=== PATIENT | female | born 1990 | race Caucasian/White ===

== ENCOUNTER → 2018-10-17 | Outpatient (CLI) | payer BC ==
[~2018-10-17] MED LIST: ACET1TAB43 PO; BENZ56AE2 TP; DOCU100C37 PO; FERR325T18 PO; IBUP-1773 PO; PREN-53 PO
--- NOTE | 2018-10-17 15:12 | Diagnostic Imaging Report ---
INDICATION: survey. TECHNIQUE: Multiple real-time grayscale images were obtained over the gravid uterus. COMPARISON: None FINDINGS: There is a single live fetus in a cephalic presentation. heart rate was recorded at 160 beats per minute. Placenta is anterior. Amniotic fluid volume is normal. survey demonstrates kidneys, bladder and stomach to be unremarkable. The brain is unremarkable. There is a four-chamber heart. There is a three-vessel cord with normal insertion. The spine is unremarkable. Cervical length is 4.2 cm. Biometrical measurements are as follows: Biparietal 4.41 cm, age 19 weeks 3 days. Head circumference 17.88 cm, age 20 weeks 3 days. Abdominal circumference 14.69 cm, age 20 weeks 0 days. Femur length 3.25 cm, age 20 weeks 1 days. Sonographic estimate age: 20 weeks 0 days. Sonographic estimated date of delivery: 03/06/19. Estimated Weight: 329 gm (+/- 48 gm). LMP percentile: 26%. heart rate: 160 beats per minute. number: 1 of 1. IMPRESSION: Single live IUP approximately 20 weeks gestational age. Estimated date of confinement sonographically is 03/06/2019. No significant abnormality is detected. Dictated by: Dictated on workstation # [id number]
== END ==
LOC: RAD 12:55
PROVIDERS: ATTEND Obstetrics & Gynecology
DX: Z36.89 Encounter for other specified antenatal screening (principal); Z3A.20 20 weeks gestation of pregnancy
CPT/HCPCS: 76805

== ENCOUNTER 2019-02-12 19:42 | Outpatient (CLI) | payer BC ==
[~2019-02-12] VITALS: Ht 165.1 cm; Wt 80.9 kg
--- NOTE | 2019-02-12 19:45 | NUR ---
JOHANN BRUCE presented to unit via ambulatory from ED, accompanied by family, with c/o CONTRACTIONS. JOHANN BRUCE weighed, gowned, voided, and to bed. EFHM and TOCO applied, VS taken. JOHANN BRUCE oriented to bed controls, call light, TV, heat, and A/C controls.
[2019-02-12 20:00] VITALS: BP 130/82
[2019-02-12] MEDS ORDERED: D5 LR IV SOLUTION 1,000 ML IV ONE (20:11)
[2019-02-12] MEDS ORDERED: D5 LR IV SOLUTION 1,000 ML IV SCH (20:15)
[2019-02-12 20:23] LABS: BILIRUBIN,URINE NEGATIVE (NEGATIVE); CLARITY,URINE CLEAR; COLOR,URINE YELLOW; GLUCOSE, URINE (UA) NEGATIVE (NEGATIVE); KETONES,URINE NEGATIVE (NEGATIVE); LEUKOCYTE ESTERASE ,URINE NEGATIVE (NEGATIVE); NITRITE,URINE NEGATIVE (NEGATIVE); PH,URINE 7 (5-9); PROTEIN,URINE NEGATIVE (NEGATIVE); UROBILINOGEN,URINE NORMAL (NORMAL)
[2019-02-12 20:27] LABS: BACTERIA,URINE TRACE /HPF
[2019-02-12 21:20] VITALS: BP 124/70
--- NOTE | 2019-02-12 22:05 | NUR ---
Discharge paperwork discussed with patient. labor precautions given. pt dc'd home. will follow up with in office on
== END 2019-02-12 22:05 | disposition home or self-care (01) ==
LOC: WSo 19:42 → LDRP 19:42 → WSo 22:05
PROVIDERS: ATTEND Obstetrics & Gynecology
DX: O62.9 Abnormality of forces of labor, unspecified (principal); Z3A.37 37 weeks gestation of pregnancy
CPT/HCPCS: 81000; 96360; 96361; 99213

== ENCOUNTER 2019-02-21 21:42 | Inpatient (IN) | payer BC ==
[~2019-02-21] VITALS: Ht 165.1 cm; Wt 77.8 kg
--- NOTE | 2019-02-21 22:00 | NUR ---
JOHANN BRUCE presented to unit via from ED, accompanied by , with c/o CONTRACTIONS. JOHANN BRUCE weighed, gowned, voided, and to bed. EFHM and TOCO applied, VS taken. JOHANN BRUCE oriented to bed controls, call light, TV, heat, and A/C controls. Pt. denies bleeding or leaking of fluids. Confirms movement.
[2019-02-21 22:12] VITALS: BP 116/66
[2019-02-21 22:31] LABS: BILIRUBIN,URINE NEGATIVE (NEGATIVE); CLARITY,URINE CLEAR; COLOR,URINE YELLOW; GLUCOSE, URINE (UA) NEGATIVE (NEGATIVE); KETONES,URINE NEGATIVE (NEGATIVE); LEUKOCYTE ESTERASE ,URINE NEGATIVE (NEGATIVE); NITRITE,URINE NEGATIVE (NEGATIVE); PH,URINE 6 (5-9); PROTEIN,URINE NEGATIVE (NEGATIVE); UROBILINOGEN,URINE NORMAL (NORMAL)
[2019-02-21 23:09] LABS: BACTERIA,URINE NEGATIVE /HPF; WBC,URINE 0-2 /HPF
[2019-02-22] VITALS (33 sets, daily range): BP systolic 99–157; BP diastolic 55–83
--- NOTE | 2019-02-22 05:43 | NUR ---
At pt bedside. Pt has been sleeping soundly throughout the night. States that she is doing well, and just a couple of contractions had woke her up through the night. Pt. has no questions or concerns at this time.
--- NOTE | 2019-02-22 07:08 | NUR ---
Report given to Reshma Barrientos RN. Care turned over.
[2019-02-22] MEDS ORDERED: D5 LR IV SOLUTION 1,000 ML IV SCH (08:24)
--- NOTE | 2019-02-22 09:00 | NUR ---
admission paperwork completed. POC reviewed with pt and .
--- NOTE | 2019-02-22 09:14 | NUR ---
#20g IV to Lt.FA x1 attempt by this RN. site patent, secured with opsite. admission labs collected from site prior to IVF''s infusing.
[2019-02-22 09:38] LABS: BASOPHILS % (AUTO) 0 % (0-10); EOSINOPHILS # (AUTO) 0.1 10^3/uL (0.0-0.3); EOSINOPHILS % (AUTO) 1 % (0-10); HEMATOCRIT 37 % (35-52); HEMOGLOBIN 12.8 G/DL (11.5-16.0); LYMPHOCYTES # (AUTO) 1.4 X 10^3 (1.0-4.0); LYMPHOCYTES % (AUTO) 18 % (12-44); MEAN CORPUSCULAR HEMOGLOBIN 33 PG (25-34); MEAN CORPUSCULAR HGB CONC 35 G/DL (32-36); MEAN CORPUSCULAR VOLUME 94 FL (80-99); MEAN PLATELET VOLUME 11.7 FL (7.4-10.4); MONOCYTES # (AUTO) 0.7 X 10^3 (0.0-1.0); MONOCYTES % (AUTO) 8 % (0-12); NEUTROPHILS # (AUTO) 5.7 X 10^3 (1.8-7.8); NEUTROPHILS % (AUTO) 72 % (42-75); PLATELET COUNT 134 10^3/uL (130-400); RED CELL DISTRIBUTION WIDTH 13.6 % (10.0-14.5); WHITE BLOOD COUNT 7.8 10^3/uL (4.3-11.0)
--- NOTE | 2019-02-22 09:42 | History & Physical-OB ---
OB - Chief Complaint & HPI Date/Time Date of Admission: Date of Admission:02/21/2019 Date seen by a Provider: Feb 22, 2019 Time Seen by a Provider: 08:00 Chief Complaint/History OB-Reason for Admission/Chief: Onset of Labor Hx : 4 Hx Para: 1 Expected Date of Delivery: Mar 03, 2019 Gestational Age in Weeks: 38 Gestational Age in Days: 4 Admission Nurse Assessment Rev: Yes History of Labs GBS neg Allergies and Home Medications Allergies Coded Allergies: No Known Drug Allergies (Unverified , 01/01/16) Home Medications Wry376/Iron Fumarate/FA/Dss 1 Each Tablet, 1 EACH PO DAILY, (Reported) Patient Home Medication List Home Medication List Reviewed: Yes OB - History Hx of Present Care: Yes Ultrasounds: Normal mid trimester US Obstetrical Complications: None Medical Complications: None Obstetrical History Hx : 4 Hx Para: 1 Hx Total # of Abortions (Spona: 2 Delivery History Hx Blood Disorders: No Adverse Rxn to Tranfusion: No Patient Past Medical History none Social History/Family History Recent Infectious Disease Expo: No Immunizations Tetanus Booster (TDap): Less than 5yrs Date of Influenza Vaccine: Oct 14, 2018 OB - Admission Exam Physical Exam Vitals: Vital Signs 02/22/19 02/22/19 00:25 02:26 Temp 97.9 Pulse 71 Resp 18 B/P (MAP) 120/63 (82) O2 Delivery Room Air HEENT: NCAT Heart: Rhythm Normal Lungs: Clear Abdomen: Gravid Extremities: Normal Cervical Dilatation: 4cm Effacement: 75% Station: -1 Membranes: Intact Heart Rate: 130's Accelerations: Accelerations Present Decelerations: No Decelerations Short Term Variability: Present Ceramic Worker Variability: Average (6-25) Contractions on Admission: 6-10 Minutes Apart Intensity: Moderate Labs Laboratory Tests Test 02/21/19 22:05 02/22/19 09:14 Range/Units Urine Color YELLOW Urine Clarity CLEAR Urine pH 6 5-9 Urine Specific [place] 1.015 L 1.016-1.022 Urine Protein NEGATIVE NEGATIVE Urine Glucose (UA) NEGATIVE NEGATIVE Urine Ketones NEGATIVE NEGATIVE Urine Nitrite NEGATIVE NEGATIVE Urine Bilirubin NEGATIVE NEGATIVE Urine Urobilinogen NORMAL NORMAL MG/DL Urine Leukocyte Esterase NEGATIVE NEGATIVE Urine RBC (Auto) NEGATIVE NEGATIVE Urine RBC NONE /HPF Urine WBC 0-2 /HPF Urine Squamous Epithelial Cells 2-5 /HPF Urine Crystals NONE /LPF Urine Bacteria NEGATIVE /HPF Urine Casts NONE /LPF Urine Mucus NEGATIVE /LPF Urine Culture Indicated NO OB - Assessment/Plan/Diagnosis Assessment Assessment: active labor Admission Dx 28 yo @ 38 weeks Active labor GBS neg Admission Status: Inpatient Order (span 2 midnights) Reason for Inpatient Admission: Active labor at term Plan Plan: Expectant Management (AROM) CLARK CASTRO DO Feb 22, 2019 09:42
[2019-02-22] MEDS ORDERED: OXYTOCIN/NORMAL SALINE 500 ML IV ONE (10:05)
[2019-02-22] MEDS: OXYTOCIN/NORMAL SALINE 500 ML IV SCH ×2 (10:10→14:59)
[2019-02-22] MEDS ORDERED: SUFENTA 0.6MCG/ML BUPIVA 0.125 100 ML ONE (11:12)
[2019-02-22] MEDS ORDERED: fentaNYL INJECTION 100 MCG/2 ML AMP ONE (11:29)
[2019-02-22] MEDS ORDERED: LACTATED RINGERS 1,000 ML IV ONE (12:16)
[2019-02-22] MEDS ORDERED: diphenhydrAMINE 50 MG/ML INJ (BENADRYL) IV PRN (12:30)
[2019-02-22] MEDS ORDERED: ONDANSETRON 4 MG/2 ML (SDV) Z0FRAN IV PRN (12:30)
[2019-02-22] MEDS ORDERED: NALOXONE 0.4 MG/ML 1 ML (NARCAN) VIAL IV PRN ×2 (12:30)
[2019-02-22] MEDS ORDERED: EPIDURAL (SUFENTA 0.6MCG/ML BUPIVA 0.125%) 100 ML BAG EPI PRN (12:30)
[2019-02-22] MEDS ORDERED: METOCLOPRAMIDE INJ 10 MG/2 ML (REGLAN) IV PRN (12:30)
[2019-02-22] MEDS ORDERED: CATHETER FLUSH 10 ML SYR IV SCH ×2 (14:00→22:00)
[2019-02-22] MEDS ORDERED: LIDOCAINE/EPI 2% 1:200,00 (XYLOCAINE) 10 ML VIAL ONE (14:09)
[2019-02-22] MEDS ORDERED: OXYTOCIN/NORMAL SALINE 500 ML IV SCH (16:54)
[2019-02-22] MEDS ORDERED: TETANUS,DIPTH,PERTUSS P/F (BOOSTRIX) 0.5 ML VIAL IM ONE (17:00)
[2019-02-22] MEDS ORDERED: BENZOCAINE/MENTHOL (DERMOPLAST) 56 ML CAN TP PRN (17:00)
[2019-02-22] MEDS ORDERED: WITCH HAZEL(TUCKS) 40 EA JAR TOP PRN (17:00)
[2019-02-22] MEDS ORDERED: MEASLES,MUMPS,RUBELLA 1 EA INJ SQ ONE (17:00)
[2019-02-22] MEDS ORDERED: DIBUCAINE (NUPERCAINAL) 1% OINT 30 GM TOP PRN (17:00)
--- NOTE | 2019-02-22 17:00 | OB Labor & Delivery Record ---
L&D History Date of Service Date of Service: Feb 22, 2019 History Expected Date of Delivery: Mar 03, 2019 Gestational Age in Weeks: 38 Hx : 4 Hx Para: 1 Complications Events: Routine care Operative Indications (Cesarea: N/A-Vaginal Delivery Intrapartal Events: None L&D Stage1 Stage One Onset of Labor - Date: Feb 22, 2019 Monitors and Tracing Monitor Mode: External Heart Rate: 130 Monitor Decelerations: None Station: -1 Prison Variability: Moderate (11-25) Short Term Variability: Present Presentation: Vertex Vital Signs VS - Last 72 Hours, by Label 02/21/19 02/22/19 02/22/19 02/22/19 22:12 00:25 02:26 07:50 Temp 97.5 97.9 97.6 Pulse 84 76 71 75 Resp 18 18 18 18 B/P (MAP) 116/66 (83) 108/61 (77) 120/63 (82) 116/72 (87) O2 Delivery Room Air Room Air Room Air Room Air 02/22/19 02/22/19 02/22/19 02/22/19 10:15 10:30 10:45 11:00 Pulse 85 78 78 78 Resp 18 18 18 18 B/P (MAP) 117/68 (84) 119/67 (84) 113/63 (80) 126/70 (88) O2 Delivery Room Air Room Air Room Air Room Air 02/22/19 02/22/19 02/22/19 02/22/19 11:15 11:30 11:40 11:45 Pulse 88 77 85 79 Resp 18 18 18 18 B/P (MAP) 137/83 (101) 137/83 (101) 132/75 (94) 157/70 (99) Pulse Ox 98 O2 Delivery Room Air Room Air Room Air Room Air 02/22/19 02/22/19 02/22/19 02/22/19 11:50 11:55 12:00 12:05 Pulse 77 85 89 78 Resp 18 18 18 18 B/P (MAP) 120/70 (87) 124/74 (91) 157/70 (99) 115/71 (86) Pulse Ox 98 100 100 100 O2 Delivery Room Air Room Air Room Air Room Air 02/22/19 02/22/19 02/22/19 02/22/19 12:10 12:15 12:20 12:25 Pulse 82 94 93 90 Resp 18 18 18 18 B/P (MAP) 117/70 (86) 133/57 (82) 111/60 (77) 107/55 (72) Pulse Ox 100 100 100 100 O2 Delivery Room Air Room Air Room Air Room Air 02/22/19 02/22/19 02/22/19 02/22/19 12:30 12:43 13:00 13:15 Temp 96.7 Pulse 112 95 80 Resp 18 18 18 B/P (MAP) 114/55 (74) 117/57 (77) 107/59 (75) Pulse Ox 100 100 100 O2 Delivery Room Air Room Air Room Air 02/22/19 02/22/19 02/22/19 02/22/19 13:30 13:45 14:00 14:25 Pulse 89 84 90 76 Resp 18 18 18 18 B/P (MAP) 99/64 (76) 121/75 (90) 119/71 (87) 107/59 (75) Pulse Ox 99 O2 Delivery Room Air Room Air Room Air Room Air 02/22/19 02/22/19 02/22/19 02/22/19 14:55 15:10 15:25 15:40 Pulse 76 76 79 83 Resp 18 18 18 18 B/P (MAP) 110/57 (74) 107/59 (75) 111/61 (78) 112/65 (81) O2 Delivery Room Air Room Air Room Air Room Air 02/22/19 02/22/19 15:55 16:10 Pulse 82 82 Resp 18 18 B/P (MAP) 104/60 (75) 109/65 (80) O2 Delivery Room Air Room Air Rupture of Membranes Spontaneous Ruture of Membrane: No Amniotic Membrane Rupture Time: 0821 Amniotic Membrane Fluid Desc.: Clear Vaginal Bleeding Description: Normal Show Induction/Anesthesia Epidural Cath Placement - Time: 1145 Progress/Notes Pitocin augmentation to max dose of 4mu /min used L&D Stage2 Stage Two Stage II Date: Feb 22, 2019 Monitors and Tracing Monitor Mode: External Heart Rate: 130 Monitor Decelerations: None Prison Variability: Average (6-10) Short Term Variability: Present Position: Right Occiput Anterior Presentation: Vertex Cord Descript/Complications Cord Vessel Description: 3 Vessels Delivery Type Delivery Method: Spontaneous Vaginal Anterior Shoulder: Left Episiotomy/Perineal Laceration Laceraction(s)/Extensions: Yes Episiotomy Description: Midline Degree (describe repair) midline epis, repaired using 3-0 and 2-0 vicryl suture Condition of Delivery 1 minute Comment: 8 5 minute Comment: 9 Notes Live male infant 7 lbs even Condition of Infant Condition of Infant: Living Exam: No Observed Abnormalities Resuscitation Resuscitation: N/A - Spontaneous Resp L&D Stage3 Stage Three Stage III Date: Feb 22, 2019 Pictocin Pitocin Administration mu/min: 30 Pitocin ml/hr: 4 Pitocin Administration Comment: 30 m/u pitocin increased at delivery of placenta Placenta Delivery Placenta Delivery: Spontaneous Delivery Summary Summary Estimated blood loss (mL): 300 Attending at delivery: Clark Castro DO Condition of Delivery Examined: Cervix Examined, Uterus Explored Post Hemorrhage: No Condition of Mother stable Condition of Infant (s) stable CLARK CASTRO DO Feb 22, 2019 17:00
[2019-02-22] MEDS: IBUPROFEN 600 MG (MOTRIN) TAB PO SCH (18:00)
[2019-02-22] MEDS: ACETAMINOPHEN 500 MG TAB (TYLENOL) PO SCH (18:00)
--- NOTE | 2019-02-22 18:00 | NUR ---
FFu/1. lt rubra noted. no clots expressed. julia-care offered. Dermaplast to perineum. v-pad and panties in place. scheduled Motrin and Tylenol given. see eMar for further. transferred to room 312 via w/c with family @ side.
--- NOTE | 2019-02-22 19:10 | NUR ---
report given to next shift.
[2019-02-23] VITALS: BP 126/59
[2019-02-23] MEDS: ACETAMINOPHEN 500 MG TAB (TYLENOL) PO SCH ×3 (00:05→12:46)
[2019-02-23] MEDS: IBUPROFEN 600 MG (MOTRIN) TAB PO SCH ×3 (00:05→12:45)
[2019-02-23 04:16] VITALS: BP 113/65
[2019-02-23 06:18] LABS: BASOPHILS % (AUTO) 0 % (0-10); EOSINOPHILS # (AUTO) 0.1 10^3/uL (0.0-0.3); EOSINOPHILS % (AUTO) 1 % (0-10); HEMATOCRIT 32 % (35-52); LYMPHOCYTES # (AUTO) 1.9 X 10^3 (1.0-4.0); LYMPHOCYTES % (AUTO) 17 % (12-44); MEAN CORPUSCULAR HEMOGLOBIN 33 PG (25-34); MEAN CORPUSCULAR HGB CONC 35 G/DL (32-36); MEAN CORPUSCULAR VOLUME 95 FL (80-99); MEAN PLATELET VOLUME 12.3 FL (7.4-10.4); MONOCYTES # (AUTO) 1.1 X 10^3 (0.0-1.0); MONOCYTES % (AUTO) 10 % (0-12); NEUTROPHILS # (AUTO) 7.7 X 10^3 (1.8-7.8); NEUTROPHILS % (AUTO) 71 % (42-75); PLATELET COUNT 146 10^3/uL (130-400); RED CELL DISTRIBUTION WIDTH 13.4 % (10.0-14.5); WHITE BLOOD COUNT 10.9 10^3/uL (4.3-11.0)
--- NOTE | 2019-02-23 06:58 | Anesthesia-Regional Post-Op ---
Regional Patient Condition Mental Status: Alert, Oriented x3 Circulation: Same as Pre-Op Headache: Absent Sensation: Full Recovery Motor Block: Absent Post Op Complications Complications None Follow Up Care/Instructions Patient Instructions None needed. Anesthesia/Patient Condition Patient is doing well, no complaints, stable vital signs, no apparent adverse anesthesia problems. No complications reported per nursing. FABRICE EAST CRNA Feb 23, 2019 06:58
[2019-02-23] MEDS ORDERED: FERROUS SULF 325 MG (IRON) TAB PO SCH (08:00)
--- NOTE | 2019-02-23 08:42 | NUR ---
infant currently breast feeding. no c/o's voiced. scheduled FeSo4 given. see eMar for further.
--- NOTE | 2019-02-23 09:45 | NUR ---
,[facility] here. new orders received.
[2019-02-23 09:52] VITALS: BP 122/64
--- NOTE | 2019-02-23 09:52 | NUR ---
initial shift assessment completed, see interventions for further. POC reviewed, states understanding.
--- NOTE | 2019-02-23 09:58 | Discharge Inst-Women's Service ---
Discharge Inst-Women's Serv Depart Medication/Instructions New, Converted or Re-Newed RX: RX on Chart Final Diagnosis PPD 1 NVD Consults/Follow Up Additional Follow Up: Yes Activity Activity: Activity as Tolerated Driving Instructions: No Driving for 1 Week NO SMOKING: NO SMOKING Nothing Inside Vagina: No Douching, No [place], No Tampons Diet Discharge Diet: No Restrictions Symptoms to Report to : Bleeding Excessive, Pain Increased, Fever Over 101 Degrees F, Vaginal Bleeding Increase For Any Problems or Questions: Contact Your Physician CLARK CASTRO DO Feb 23, 2019 09:58
[2019-02-23] MEDS ORDERED: IBUP-844 PO (09:59)
[2019-02-23] MEDS ORDERED: Benzocaine/Menthol TP (09:59)
--- NOTE | 2019-02-23 10:02 | Postpartum Progress Note ---
Note Note Day # 1 Subjective: Patient is without complaints. Ambulating, voiding. Tolerating a regular diet without nausea or vomiting. Normal lochia. Pain is well controlled with oral pain medications. Objective: Physical Exam: General - Alert and oriented, no apparent distress Abdomen - Soft, appropriately tender to palpation, non-distended, fundus firm at umbilicus Extremities - no edema, negative Eva's bilaterally Assessment: PPD 1 NVD Plan: Routine care. Encourage breast feeding. Encourage ambulation. Ferrous sulfate supplementation. Plan for discharge today Vitals - Labs Vital Signs - I&O Vital Signs Date Time Temp Pulse Resp B/P (MAP) Pulse Ox O2 Delivery O2 Flow Rate FiO2 02/23/19 04:16 98.5 82 18 113/65 (81) Room Air 02/23/19 00:00 99.1 91 18 126/59 (81) 97 Room Air 02/22/19 20:15 99.5 97 18 110/59 (76) 97 Room Air 02/22/19 16:10 82 18 109/65 (80) Room Air 02/22/19 15:55 82 18 104/60 (75) Room Air 02/22/19 15:40 83 18 112/65 (81) Room Air 02/22/19 15:25 79 18 111/61 (78) Room Air 02/22/19 15:10 76 18 107/59 (75) Room Air 02/22/19 14:55 96.3 76 18 110/57 (74) Room Air 02/22/19 14:25 76 18 107/59 (75) Room Air 02/22/19 14:00 90 18 119/71 (87) Room Air 02/22/19 13:45 84 18 121/75 (90) Room Air 02/22/19 13:30 89 18 99/64 (76) 99 Room Air 02/22/19 13:15 80 18 107/59 (75) 100 Room Air 02/22/19 13:00 95 18 117/57 (77) 100 Room Air 02/22/19 12:43 96.7 02/22/19 12:30 112 18 114/55 (74) 100 Room Air 02/22/19 12:25 90 18 107/55 (72) 100 Room Air 02/22/19 12:20 93 18 111/60 (77) 100 Room Air 02/22/19 12:15 94 18 133/57 (82) 100 Room Air 02/22/19 12:10 82 18 117/70 (86) 100 Room Air 02/22/19 12:05 78 18 115/71 (86) 100 Room Air 02/22/19 12:00 89 18 157/70 (99) 100 Room Air 02/22/19 11:55 85 18 124/74 (91) 100 Room Air 02/22/19 11:50 77 18 120/70 (87) 98 Room Air 02/22/19 11:45 79 18 157/70 (99) Room Air 02/22/19 11:40 85 18 132/75 (94) 98 Room Air 02/22/19 11:30 77 18 137/83 (101) Room Air 02/22/19 11:15 88 18 137/83 (101) Room Air 02/22/19 11:00 78 18 126/70 (88) Room Air 02/22/19 10:45 78 18 113/63 (80) Room Air 02/22/19 10:30 78 18 119/67 (84) Room Air 02/22/19 10:15 85 18 117/68 (84) Room Air I & O 02/23/19 07:00 Intake Total 2000 ml Balance 2000 ml Labs Laboratory Tests 02/23/19 05:47: White Blood Count 10.9, Red Blood Count 3.37L, Hemoglobin 11.0L, Hematocrit 32L , Mean Corpuscular Volume 95, Mean Corpuscular Hemoglobin 33, Mean Corpuscular Hemoglobin Concent 35, Red Cell Distribution Width 13.4, Platelet Count 146, Mean Platelet Volume 12.3H, Neutrophils (%) (Auto) 71, Lymphocytes (%) (Auto) 17 , Monocytes (%) (Auto) 10, Eosinophils (%) (Auto) 1, Basophils (%) (Auto) 0, Neutrophils # (Auto) 7.7, Lymphocytes # (Auto) 1.9, Monocytes # (Auto) 1.1H, Eosinophils # (Auto) 0.1, Basophils # (Auto) 0.0 CLARK CASTRO DO Feb 23, 2019 10:02
[2019-02-23 12:45] VITALS: BP 133/83
--- NOTE | 2019-02-23 16:20 | NUR ---
dismissal instructions given, verbalizes understanding. reviewed follow up appointment and Motrin Rx. signature page signed, placed on chart.
--- NOTE | 2019-02-23 16:29 | NUR ---
Isa Velazquez called into [facility]'s pharmacy per pt's request.
--- NOTE | 2019-02-23 16:40 | NUR ---
pt ambulated to private vehicle with this RN, , and daughter @ side. infant secured in rear facing car seat. pt stable with no sx's of distress noted.
== END 2019-02-23 16:40 | disposition home or self-care (01) | DRG 807 ==
LOC: WSo 21:42 → LDRP 21:42 → WSo 02-22 08:45 → LDRP 02-22 18:00
PROVIDERS: ADMIT Obstetrics & Gynecology; ATTEND Obstetrics & Gynecology
PROC: 10E0XZZ Delivery of Products of Conception, External Approach (ICD-10-PCS; principal; 2019-02-22)
PROC: 0W8NXZZ Division of Female Perineum, External Approach (ICD-10-PCS; 2019-02-22)
DX: O80 Encounter for full-term uncomplicated delivery (principal); Z37.0 Single live birth; Z3A.38 38 weeks gestation of pregnancy
CPT/HCPCS: 36415; 81000; 85025; 86850; 86900; 86901; 99212

== ENCOUNTER → 2020-10-18 | Outpatient (CLI) | payer BC ==
[~2020-10-18] MED LIST changes: +Benzocaine/Menthol TP; +IBUP-844 PO
--- NOTE | 2020-10-18 16:35 | Diagnostic Imaging Report ---
PROCEDURE: CT maxillofacial without contrast. TECHNIQUE: Multiple contiguous axial images were obtained through the facial bones without the use of intravenous contrast. Auto Exposure Controls were utilized during the CT exam to meet ALARA standards for radiation dose reduction. INDICATION: Swelling in left jaw. Chronic sinus problems. COMPARISON: None. FINDINGS: There is complete opacification of the right maxillary sinus and opacification of several of the right anterior ethmoid air cells. The paranasal sinuses are otherwise clear. The right maxillary ostium and frontal recesses are completely occluded. The left ostiomeatal complex and frontal recesses are patent. Normal alignment of the temporomandibular joints. No fractures. The mastoids and middle ears are clear. Skull base intact. Visualized orbits and paranasal sinuses are unremarkable. IMPRESSION: Complete opacification of the right maxillary sinus, several anterior right ethmoid air cells and occlusion of the right maxillary ostium and frontal recesses. Dictated by: Dictated on workstation # [id number]
== END ==
LOC: RAD FS 15:35
PROVIDERS: ATTEND Family Medicine
DX: J34.89 Other specified disorders of nose and nasal sinuses (principal); R22.0 Localized swelling, mass and lump, head
CPT/HCPCS: 70486

== ENCOUNTER 2021-04-17 05:38 | Outpatient (CLI) | payer BC ==
[~2021-04-17] VITALS: Ht 165.1 cm; Wt 63.2 kg
== END 2021-04-17 10:49 | disposition home or self-care (01) ==
LOC: PREOP 05:38
PROVIDERS: ATTEND Otolaryngology Otolaryngology/Facial Plastic Surgery
DX: Z01.818 Encounter for other preprocedural examination (principal)

== ENCOUNTER → 2021-04-22 | Outpatient (CLI) | payer BC ==
[~2021-04-22] MED LIST changes: +ACHD5005 PO; +AMOX-355 PO; +PRD20T PO
== END ==
LOC: LAB FS 10:00
PROVIDERS: ATTEND Otolaryngology Otolaryngology/Facial Plastic Surgery
DX: Z01.812 Encounter for preprocedural laboratory examination (principal); J32.9 Chronic sinusitis, unspecified; J34.3 Hypertrophy of nasal turbinates; Z20.822 Contact with and (suspected) exposure to COVID-19
CPT/HCPCS: 87635

== ENCOUNTER 2021-04-24 06:19 | Day surgery (SDC) | payer BC ==
[~2021-04-24] VITALS: Ht 165 cm; Wt 63.2 kg
[2021-04-24] VITALS (8 sets, daily range): BP systolic 102–151; BP diastolic 71–98
[~2021-04-24 06:19] MED LIST changes: -ACHD5005 PO; -AMOX-355 PO; -PRD20T PO
[2021-04-24] MEDS ORDERED: HYDROCORTISONE 100 MG/2 ML (Solu-CORTEF) VIAL IV ONE (06:30)
[2021-04-24] MEDS ORDERED: AMPICILLIN/SULBACTAM INJECTION 1.5 GM in NS (IVPB) 100 ML IV ONE (06:30)
[2021-04-24] MEDS ORDERED: LACTATED RINGERS 1,000 ML IV PRN (06:30)
[2021-04-24] MEDS ORDERED: MIDAZOLAM 2 MG/2 ML (VERSED) VIAL ONE (06:46)
[2021-04-24] MEDS ORDERED: ROCURONIUM 10 MG/ML 5 ML SYRINGE IV ONE (06:46)
[2021-04-24] MEDS ORDERED: proPOfol 200 MG/20 ML (DIPRIVAN) VIAL IV ONE (06:46)
[2021-04-24] MEDS ORDERED: fentaNYL INJ 100 MCG/2 ML AMP ONE (06:46)
[2021-04-24] MEDS ORDERED: LIDOCAINE PF 2% 5 ML (XYLOCAINE) VIAL ONE (06:46)
[2021-04-24] MEDS ORDERED: ONDANSETRON 4 MG/2 ML (SDV) Z0FRAN ONE (06:46)
[2021-04-24] MEDS ORDERED: SEVOFLURANE (ULTANE) 15 ML INHAL SOLN ONE ×3 (06:52→07:50)
[2021-04-24 06:53] LABS: BASOPHILS % (AUTO) 1 % (0-10); EOSINOPHILS # (AUTO) 0.1 10^3/uL (0.0-0.3); EOSINOPHILS % (AUTO) 3 % (0-10); HEMATOCRIT 41 % (35-52); HEMOGLOBIN 14.1 g/dL (11.5-16.0); LYMPHOCYTES # (AUTO) 2.4 10^3/uL (1.0-4.0); LYMPHOCYTES % (AUTO) 42 % (12-44); MEAN CORPUSCULAR HEMOGLOBIN 31 pg (25-34); MEAN CORPUSCULAR HGB CONC 34 g/dL (32-36); MEAN CORPUSCULAR VOLUME 90 fL (80-99); MEAN PLATELET VOLUME 11.3 fL (9.0-12.2); MONOCYTES # (AUTO) 0.5 10^3/uL (0.0-1.0); MONOCYTES % (AUTO) 9 % (0-12); NEUTROPHILS # (AUTO) 2.5 10^3/uL (1.8-7.8); NEUTROPHILS % (AUTO) 45 % (42-75); PLATELET COUNT 201 10^3/uL (130-400); WHITE BLOOD COUNT 5.6 10^3/uL (4.3-11.0)
[2021-04-24] MEDS ORDERED: COCAINE HCL 4% 2 ML SYR ONE (06:55)
[2021-04-24] MEDS ORDERED: LIDOCAINE/EPI 1%-1:100,000 (XYLOCAINE) 20ML ONE (06:56)
[2021-04-24] MEDS ORDERED: BSS 15 ML ONE (06:56)
[2021-04-24] MEDS ORDERED: PHENYLEPHRINE 0.5% NASAL SPR (NEO-SYNEPHRINE) REG ONE (06:56)
[2021-04-24 07:01] LABS: CHLORIDE 104 MMOL/L (98-107); POTASSIUM 3.2 MMOL/L (3.6-5.0); SODIUM 140 MMOL/L (135-145)
[2021-04-24 07:02] LABS: CALCIUM 8.9 MG/DL (8.5-10.1)
[2021-04-24 07:03] LABS: GLUCOSE 90 MG/DL (70-105)
[2021-04-24 07:04] LABS: CARBON DIOXIDE 26 MMOL/L (21-32)
[2021-04-24 07:07] LABS: CREATININE SERUM 0.84 MG/DL (0.60-1.30); GFR ESTIMATED > 60
[2021-04-24 07:08] LABS: BUN/CREATININE RATIO 13
--- NOTE | 2021-04-24 07:13 | Progress Note-Pre Operative ---
Pre-Operative Progress Note H&P Reviewed The H&P was reviewed, patient examined and no changes noted. Date Seen by Provider: Apr 24, 2021 Time Seen by Provider: 06:30 Date H&P Reviewed: Apr 24, 2021 Time H&P Reviewed: 06:30 Pre-Operative Diagnosis: Chronic Rigth sinusitis CLARK WEBBER MD Apr 24, 2021 07:13
[2021-04-24] MEDS ORDERED: GLYCOPYRROLATE 0.2 MG/ML (ROBINUL) 2 ML VIAL ONE (07:52)
[2021-04-24] MEDS ORDERED: NEOSTIGMINE 3 MG/3 ML VIAL ONE (07:52)
[2021-04-24] MEDS ORDERED: MEPERIDINE (DEMEROL) INJ 50 MG/ML ONE (08:03)
--- NOTE | 2021-04-24 08:04 | Progress Note-Post Operative ---
Post-Operative Progess Note Surgeon (s)/Business Continuity Global Director (s) Surgeon CLARK WEBBER MD Business Continuity Global Director n/a Pre-Operative Diagnosis Chronic Rigth sinusitis Post-Operative Diagnosis same Post-Op Procedure Note Date of Procedure: Apr 24, 2021 Name of Procedure Performed: Right Endoscopoic Sinus Surgery Description & Findings Description and Findings: n/a Anesthesia Type get Estimated Blood Loss minimal Packing none. Specimen(s) collected/removed right chronic sinus disease-cultures right maxillary sinus CLARK WEBBER MD Apr 24, 2021 08:04
[2021-04-24] MEDS ORDERED: PROMETHAZINE INJ 25 MG/ML (PHENERGAN) AMP IVP ONE (08:15)
[2021-04-24] MEDS ORDERED: MEPERIDINE (DEMEROL) INJ 50 MG/ML IVP ONE (08:15)
[2021-04-24] MEDS ORDERED: ONDANSETRON 4 MG/2 ML (SDV) Z0FRAN IVP PRN (08:15)
[2021-04-24] MEDS ORDERED: morphine INJ 10 MG/ML 1ML (SYR OR VIAL) IVP ONE (08:15)
[2021-04-24] MEDS ORDERED: HYDROcodone/APAP 5 MG/325 MG (LORTAB) TAB PO PRN (08:15)
[2021-04-24] MEDS ORDERED: HYDROmorphone 2 MG/ML VIAL (DILAUDID) IV ONE (08:15)
[2021-04-24] MEDS ORDERED: D5 1/2 NS W/KCL 20 MEQ/L 1,000 ML IV SCH (08:15)
[2021-04-24] MEDS ORDERED: PROMETHAZINE INJ 25 MG/ML (PHENERGAN) AMP IVP PRN (08:15)
[2021-04-24] MEDS ORDERED: ACETAMINOPHEN 325 MG TABLET PO PRN (08:15)
[2021-04-24] MEDS ORDERED: predniSONE 20 MG TAB PO ONE (08:15)
--- NOTE | 2021-04-24 08:15 | Anesthesia-General Post-Op ---
General Patient Condition Mental Status/LOC: Same as Preop Cardiovascular: Satisfactory Nausea/Vomiting: Absent Respiratory: Satisfactory Pain: Controlled Complications: Absent Post Op Complications Complications None Follow Up Care/Instructions Patient Instructions None needed. Anesthesia/Patient Condition Patient Condition Patient is doing well, no complaints, stable vital signs, no apparent adverse anesthesia problems. No complications reported per nursing. FABRICE EAST CRNA Apr 24, 2021 08:15
[2021-04-24] MEDS ORDERED: ACHD5005 PO ×2 (08:21→08:24)
[2021-04-24] MEDS ORDERED: AMOX-355 PO (08:23)
[2021-04-24] MEDS ORDERED: PRD20T PO (08:23)
[2021-04-24] MEDS ORDERED: predniSONE 20 MG TAB ONE (09:09)
[2021-04-24] MEDS ORDERED: HYDROcodone/APAP 5 MG/325 MG (LORTAB) TAB ONE (09:09)
== END 2021-04-24 10:10 | disposition home or self-care (01) ==
LOC: SDC 06:19
PROVIDERS: ATTEND Otolaryngology Otolaryngology/Facial Plastic Surgery
DX: J32.4 Chronic pansinusitis (principal)
CPT/HCPCS: 36415; 80048; 84703; 85025; 87070; 87075; 87076; 87077; 87081; 87101; 87185; 87186; 87205